=== PATIENT | male | born 1960 | race American Indian/Alaskan Native ===

== ENCOUNTER 2021-12-20 10:36 | Outpatient (CLI) | payer OTHER ==
--- NOTE | 2021-12-20 12:58 | XRay Report ---
BILATERAL HANDS 2 VIEWS INDICATION: Bilateral hand pain. COMPARISON: None. IMPRESSION: No acute osseous or soft tissue abnormality. No significant DJD. BILATERAL KNEES 2 VIEWS INDICATION: Bilateral knee pain. COMPARISON: None. IMPRESSION: No acute osseous or soft tissue abnormality. No significant DJD. LUMBOSACRAL SPINE 3 VIEWS INDICATION: Low back pain. COMPARISON: None. IMPRESSION: There is normal alignment on the lateral view. There is minimal dextrocurvature of the l umbar spine on the frontal view. Mild discogenic DJD and facet arthropathy are identified at L4-5 an d L5-S1. No acute osseous or soft tissue abnormality. CERVICAL SPINE 5 VIEWS INDICATION: Neck pain. COMPARISON: None. IMPRESSION: Normal alignment. 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 The remaining disc levels and facet joints are unremarkable. Moderate to severe left neural foraminal narrowing at C5-6 is suspected on the oblique images. No acute osseous or soft tissue abnormality. Signer Name: Zak Deleon Jr, MD Signed: 12/20/2021 12:54 PM Workstation Name: [id number]
== END 2021-12-20 10:37 | disposition home or self-care (01) ==
LOC: XRAY 10:36
PROVIDERS: ATTEND Internal Medicine
DX: M47.817 Spondylosis without myelopathy or radiculopathy, lumbosacral region (principal); M47.812 Spondylosis without myelopathy or radiculopathy, cervical region; M25.562 Pain in left knee; M25.561 Pain in right knee; M79.642 Pain in left hand; M79.641 Pain in right hand
CPT/HCPCS: 72050; 72100